=== PATIENT | female | born 1970 | race Caucasian/White ===

== ENCOUNTER 2016-10-18 05:26 | Inpatient (IN) | payer MEDICAID ==
[2016-10-18] MEDS ORDERED: Dextrose 5%-Lactated Ringers 1,000 ML IV SCH (06:00)
[2016-10-18] MEDS ORDERED: Gabapentin 300 MG Cap PO ONE (06:30)
[2016-10-18] MEDS ORDERED: Acetaminophen 500 MG Tab PO ONE (06:30)
[2016-10-18] MEDS ORDERED: Celecoxib 200 MG Cap PO ONE (06:30)
[2016-10-18] MEDS ORDERED: Scopolamine 1.5 MG Transdermal Patch TOP SCH (06:30)
[2016-10-18] MEDS ORDERED: Albuterol/Ipratropium 3.0-0.5 MG/3 ML Neb Soln NEB ONE (07:30)
[2016-10-18] MEDS ORDERED: Neostigmine Methylsulfate 1 MG/ML 5 ML Syringe ONE (07:32)
[2016-10-18] MEDS ORDERED: Propofol 200 MG/20 ML SDV ONE (07:32)
[2016-10-18] MEDS ORDERED: Dexamethasone 4 MG/ML SDV ONE (07:32)
[2016-10-18] MEDS ORDERED: Glycopyrrolate 0.2 MG/ML 5 ML MDV ONE (07:32)
[2016-10-18] MEDS ORDERED: Succinylcholine 200 MG/10 ML MDV ONE (07:32)
[2016-10-18] MEDS ORDERED: Rocuronium 50 MG/5 ML Vial ONE (07:32)
[2016-10-18] MEDS ORDERED: Ondansetron 4 MG/2 ML SDV ONE (07:32)
[2016-10-18] MEDS ORDERED: cefOXitin 2 GM Vial ONE (07:41)
[2016-10-18] MEDS: Lidocaine 0.4%/D5W 2 GM/500 ML BAG IV SCH ×2 (08:00→23:59)
[2016-10-18] MEDS ORDERED: Ketamine 500 MG/5 ML MDV IV ONE (08:00)
[2016-10-18] MEDS ORDERED: Lidocaine 2% 100 MG/5 ML Syringe IVPUSH ONE (08:00)
[2016-10-18] MEDS: cefOXitin 2 GM in Sodium Chloride 0.9% 50 ML IV ONE ×2 (09:17→15:33)
[2016-10-18] MEDS: Ropivacaine 60 ML, Dexamethasone 8 MG, EPINEPHrine 0.4 MG, Sodium Chloride 0.9% 17.6 ML NERVRT ONE ×8 (09:18→15:34)
[2016-10-18] MEDS ORDERED: fentaNYL 100 MCG/2 ML SDV ONE ×2 (09:26→10:05)
[2016-10-18] MEDS ORDERED: fentaNYL 100 MCG/2 ML SDV IVPUSH ONE ×2 (10:50→11:08)
[2016-10-18] MEDS ORDERED: hydrOXYzine HCl 100 MG/2 ML SDV IM PRN (12:06)
[2016-10-18] MEDS ORDERED: Labetalol 20 MG/4 ML Syringe IVPUSH PRN (13:00)
[2016-10-18] MEDS ORDERED: Ondansetron 4 MG/2 ML SDV IVPUSH PRN (13:00)
[2016-10-18] MEDS ORDERED: diphenhydrAMINE 50 MG/ML SDV IVPUSH PRN (13:00)
[2016-10-18] MEDS ORDERED: SCOPOLAMINE PATCH ASK TOP SCH (13:00)
[2016-10-18] MEDS ORDERED: Albuterol/Ipratropium 3.0-0.5 MG/3 ML Neb Soln INH PRN (13:00)
[2016-10-18] MEDS ORDERED: Metoclopramide 10 MG/2 ML SDV IVPUSH PRN (13:00)
[2016-10-18] MEDS: Dextrose 5%-Lactated Ringers 1,000 ML IV SCH ×2 (13:40→20:27)
[2016-10-18] MEDS: cefOXitin 2 GM in Sodium Chloride 0.9% 50 ML IV SCH ×2 (14:03→20:27)
[2016-10-18] MEDS: Gabapentin 300 MG Cap PO SCH ×2 (14:04→20:28)
[2016-10-18] MEDS: Acetaminophen 325 MG Tab PO SCH ×2 (14:04→20:27)
[2016-10-18] MEDS: Pantoprazole 40 MG Vial IVPUSH SCH (14:04)
[2016-10-18] MEDS: Albuterol/Ipratropium 3.0-0.5 MG/3 ML Neb Soln INH SCH ×2 (14:40→20:27)
[2016-10-18] MEDS ORDERED: MVI, Adult with Vitamin K 10 ML, Thiamine 200 MG, Chromium/Copper/Mang/Selen/Zn 1 ML in... IV SCH ×4 (16:00)
[2016-10-18] MEDS: Heparin Sodium 5,000 Units/ML Vial SUBCUT SCH (17:33)
[2016-10-19] MEDS: Acetaminophen 325 MG Tab PO SCH ×4 (02:36→21:04)
[2016-10-19] MEDS: cefOXitin 2 GM in Sodium Chloride 0.9% 50 ML IV SCH ×2 (02:36→07:55)
[2016-10-19] MEDS: Heparin Sodium 5,000 Units/ML Vial SUBCUT SCH ×2 (05:06→17:48)
[2016-10-19] MEDS: Albuterol/Ipratropium 3.0-0.5 MG/3 ML Neb Soln INH SCH ×4 (07:17→21:05)
[2016-10-19] MEDS: Celecoxib 200 MG Cap PO SCH (07:54)
[2016-10-19] MEDS: Gabapentin 300 MG Cap PO SCH ×3 (09:16→21:05)
[2016-10-19] MEDS: SCOPOLAMINE PATCH CHECK TOP SCH (09:19)
[2016-10-19] MEDS ORDERED: Benzonatate 100 MG Cap PO PRN (09:53)
[2016-10-19] MEDS ORDERED: QUEtiapine 25 MG Tab PO PRN (09:55)
[2016-10-19] MEDS: Sertraline 50 MG Tab PO SCH (10:24)
[2016-10-19] MEDS: Hydrochlorothiazide 25 MG Tab PO SCH (10:24)
[2016-10-19] MEDS ORDERED: Dextrose 5%-Lactated Ringers 1,000 ML IV SCH (12:00)
[2016-10-19] MEDS: lamoTRIgine 100 MG Tab PO SCH (12:15)
[2016-10-19] MEDS: Pantoprazole 40 MG Vial IVPUSH SCH (14:16)
[2016-10-19] MEDS: Amphetamine/Dextroamphetamine Salts 10 MG Tab PO SCH (14:25)
[2016-10-19] MEDS ORDERED: MVI, Adult with Vitamin K 10 ML, Thiamine 200 MG, Chromium/Copper/Mang/Selen/Zn 1 ML in... IV SCH ×4 (16:00)
[2016-10-20] MEDS: Acetaminophen 325 MG Tab PO SCH ×2 (02:20→09:11)
[2016-10-20] MEDS: Gabapentin 300 MG Cap PO SCH (05:38)
[2016-10-20] MEDS: Heparin Sodium 5,000 Units/ML Vial SUBCUT SCH (05:39)
[2016-10-20] MEDS: Albuterol/Ipratropium 3.0-0.5 MG/3 ML Neb Soln INH SCH (07:27)
[2016-10-20 07:47] VITALS: BP 146/66
[2016-10-20] MEDS ORDERED: Cyanocobalamin (Vitamin B12) 1,000 MCG/ML SDV IM ONE (09:00)
[2016-10-20] MEDS: Amphetamine/Dextroamphetamine Salts 10 MG Tab PO SCH (09:10)
[2016-10-20] MEDS: Celecoxib 200 MG Cap PO SCH (09:11)
[2016-10-20] MEDS: SCOPOLAMINE PATCH CHECK TOP SCH (09:11)
[2016-10-20] MEDS: Hydrochlorothiazide 25 MG Tab PO SCH (09:12)
[2016-10-20] MEDS: Sertraline 50 MG Tab PO SCH (09:13)
[2016-10-20] MEDS: lamoTRIgine 100 MG Tab PO SCH (09:16)
--- NOTE | 2016-10-20 17:07 | PN ---
DATE OF SERVICE: 10/19/2016 The patient is postop day 1 from Ryan-en-Y gastric bypass along with diaphragmatic hernia repair. Clinically, she is doing well. Oral intake has been fairly good overnight and we will begin a step-2 diet today. The planned narcotic pain management appears to be satisfactory. We will restart the pertinent oral medications and go up to a step-2 diet today. Johnathan Alba MD /[id number]
--- NOTE | 2016-10-21 11:46 | DISCH ---
FINAL DIAGNOSES: 1. Morbid obesity. 2. Marked hepatomegaly. 3. Paraesophageal diaphragmatic hernia. 4. Mediastinal lipoma. 5. History of depression. 6. History of migraines. OPERATIVE PROCEDURE: This was done on 10/18/2016: 1. Laparoscopic Ryan-en-Y gastric bypass. 2. Devang-Cut needle liver biopsy. 3. Repair of paraesophageal diaphragmatic hernia. 4. Excision of mediastinal lipoma. HOSPITAL COURSE: This is a 45-year-old female presenting with longstanding morbid obesity and increasingly significant comorbidities. After preoperative evaluation and discussion, she wished to proceed with a gastric bypass procedure. This was done on the date of admission. She did have quite marked hepatomegaly with the liver being slightly rough in terms of surface but not overtly cirrhotic, and there was no portal hypertension identified. She had a fairly large paraesophageal diaphragmatic hernia, along with mediastinal lipoma, which were further corrected and excised concurrently. Postoperatively, she has done extremely well, not requiring any narcotics after the one dose postoperatively. She will be discharged home. She is to have a step-2 diet until her first appointment, which will be with Rebekah Bermeo at [facility] on 10/28/2016. She will be instructed to hold off on her vitamins and other supplements until the first appointment. Otherwise, she will be continuing her current medications, with the exception that we will have her hold the hydrochlorothiazide at this point, as getting enough liquids in is often somewhat problematic in the first couple of weeks after this surgery. Her iron supplementation will be switched over to Vitron-C, as the ferrous sulfate would not typically be well absorbed following the gastric bypass. Otherwise, in addition to the Celebrex, she will be taking gabapentin 300 mg t.i.d. x2 weeks p.r.n. and Tylenol 650 q.6 hours p.r.n. for pain, along with the Celebrex as noted above. No narcotics will be issued at discharge.
--- NOTE | 2016-10-21 12:00 | CR ---
Limited upper GI. Status post Ryan-en-Y. No gross contrast leakage.
--- NOTE | 2016-10-21 13:10 | OR ---
DATE OF PROCEDURE: 10/18/2016 PREOPERATIVE DIAGNOSIS: Morbid obesity. POSTOPERATIVE DIAGNOSES: 1. Morbid obesity. 2. Marked hepatomegaly with slightly roughened surface of liver. 3. Paraesophageal diaphragmatic hernia. 4. Mediastinal lipoma. OPERATIVE PROCEDURE: 1. Laparoscopic Ryan-en-Y gastric bypass with long limb gastroenterostomy (99587). 2. Devang-Cut needle liver biopsy (33403). 3. Repair of paraesophageal diaphragmatic hernia (38586). 4. Excision of mediastinal lipoma (21897). ANESTHESIA: General. PUBLIC HEALTH SANITARIAN TECHNICIAN: Rebekah Bermeo PA-C. INDICATION FOR PROCEDURE: This is a 45-year-old female presenting with longstanding morbid obesity and increasingly significant comorbidities. After preoperative evaluation and discussion, she wished to proceed with a gastric bypass procedure. Potential risks of the procedure including bleeding, infection, injury to underlying viscera, problems with bowel obstruction over time, leaks from various GI tract closures, as well as possibility of cardiopulmonary, septic, or hemorrhagic complications leading to were discussed, and the patient wishes to proceed. DETAILS OF PROCEDURE: The patient was taken to the operating room and placed in a supine position. After general endotracheal anesthesia was induced, converted to a lithotomy position. Using continuous ultrasound guidance, bilateral subcostal transversus abdominis plane blocks were placed using a standard formula. The abdomen was then prepped and draped and an orogastric tube placed. At 15 cm inferior and 5 cm left of xiphoid process, a transverse incision was made, and the peritoneal cavity entered under direct vision with Optiview trocar inflated to 15 mmHg pressure with CO2. Laparoscope was then reinserted. No underlying trocar insertion site injuries were seen. Following this, 5 additional trocars were placed across the upper mid abdomen and general exploration undertaken. The patient was noted to have quite marked hepatomegaly but the liver had a slightly irregular surface but it was not grossly cirrhotic, and there was no evidence of portal hypertension. Devang-Cut needle biopsies from the left lobe of the liver were obtained and minimal bleeding from the biopsy sites was controlled with electrocautery. The omentum was then divided in the midline up to the level of the transverse colon. This allowed identification of the small bowel at the ligament of Treitz. The small bowel was traced out 200 cm distal to that point, where it was divided transversely with a MCKAY stapler. Small bowel was then traced out an additional 150 cm, where the [id number] enteroenterostomy was accomplished with internal firing of the Endo-MCKAY 60 mm stapler. The common opening was then closed transversely with same stapler, angles anastomosed, and mesenteric defect approximated with some 0 Ethibond stitch, along with fibrin sealant, divided, and Ryan limb was then from the mesentery for a few centimeters, which allowed an antecolic position of the Ryan limb up to the level of the gastroesophageal junction without tension. The liver was then retracted anteriorly. The patient was noted to have a moderate-sized paraesophageal diaphragmatic hernia with prolapse of some omentum and perigastric fat in the edge of the gastric fundus in a plane anterior to the course of the esophagus. These areas were reduced and the peritoneum overlying it incised and reflected downward. During the course of the dissection of the hiatal hernia, a mediastinal lipoma was encountered, and this was excised and sent as a separate specimen. An anterior repair of the diaphragmatic hernia was then accomplished with a series of 0 Ethibond sutures reinforced with PTFE pledgets. The gastrointestinal balloon catheter was then inflated to 15 mL and pulled up snugly against the EG junction. Gastric wall over the apex balloon was then marked with electrocautery, and balloon catheter deflated and pulled up from the esophagus. The lesser omental tissue adjacent to gastric cardia was then incised and pouch formation was initiated with a transverse firing of the MCKAY stapler at the level of the cauterized dane in the gastric cardia. The pouch was then completed with 2 additional firings of MCKAY stapler up to and through the angle of His. Upon completion of the pouch, both staple lines were noted to be intact. The anvil of a 25 mm EEA stapler was attached to Jennings sump type tube. The latter was brought down through the mouth and taken out through a small opening in the gastric pouch, allowing the anvil likewise to be pulled down within the gastric pouch. The divided end of the Ryan limb was then opened, main body of the EEA stapler passed several centimeters in the lumen of the small bowel, brought up the anvil and united with it, thus creating the gastrojejunostomy. Upon removal of the stapler, double donuts of mucosa were noted within it. Small bowel was closed off with a vascular staple line. Gastrojejunostomy was reinforced with 3-0 Vicryl seromuscular stitch, along with fibrin sealant. Leak test was accomplished with injection of 120 mL of air in the gastric pouch while submerged with cefoxitin-containing saline solution. No leaks were identified. One Dalton-Warner drain was taken out through the left lateral trocar site and placed adjacent to the gastrojejunostomy up into the splenic fossa. The trocars were then sequentially removed and peritoneal cavity deflated. The incision was closed with some 4-0 Vicryl skin stitch and drain was affixed with some 4-0 Vicryl stitch as well. The patient was taken to the recovery room in satisfactory condition. Physician psychologist research assistant, Rebekah Bermeo, played an essential role in assisting in this case, helping to position the patient, retract structures as needed, as well as suturing and cutting sutures as indicated. Her presence improved patient safety and decreased operative time. Johnathan Alba MD /[id number]
== END 2016-10-20 11:10 | disposition home or self-care (01) | DRG 403 ==
LOC: JP.SDSSCHI 05:26 → JP.SDS 05:26 → EDSTATUS 07:45 → JP.2SS 10:32
PROVIDERS: ADMIT Surgery; ATTEND Surgery
PROC: 0WBC4ZX Excision of Mediastinum, Percutaneous Endoscopic Approach, Diagnostic (ICD-10-PCS; principal; 2016-10-18)
PROC: 0D164ZA Bypass Stomach to Jejunum, Percutaneous Endoscopic Approach (ICD-10-PCS; principal; 2016-10-18)
PROC: 0FB24ZX Excision of Left Lobe Liver, Percutaneous Endoscopic Approach, Diagnostic (ICD-10-PCS; principal; 2016-10-18)
PROC: 0BQS4ZZ (ICD-10-PCS; principal; 2016-10-18)
PROC: 0BQR4ZZ (ICD-10-PCS; principal; 2016-10-18)
DX: E66.01 Morbid (severe) obesity due to excess calories (principal); Z68.42 Body mass index [BMI] 45.0-49.9, adult; R16.0 Hepatomegaly, not elsewhere classified; K44.9 Diaphragmatic hernia without obstruction or gangrene; D17.4 Benign lipomatous neoplasm of intrathoracic organs; F32.9 Major depressive disorder, single episode, unspecified; F40.10 Social phobia, unspecified; F17.200 Nicotine dependence, unspecified, uncomplicated; G47.33 Obstructive sleep apnea (adult) (pediatric); F90.9 Attention-deficit hyperactivity disorder, unspecified type; R06.9 Unspecified abnormalities of breathing; Z88.8 Allergy status to other drugs, medicaments and biological substances; Z91.018 Allergy to other foods
CPT/HCPCS: 36415; 74240; 74240-26; 82947; 86850; 86900; 86901; 88304; 88307; 88313; 94640; 94640-76; A9270-GY; C9113; J0171; J0330; J0694; J1100; J1644; J2001; J2405; J2704; J2710; J2795; J3010; J3410; J3411; J3420; J7030; J7040; J7042; J7050; J7620